=== PATIENT | male | born 1945 | race Caucasian/White ===

== ENCOUNTER 2023-03-16 13:10 | Outpatient (CLI) | payer MEDICARE, OTHER, SELFPAY ==
--- NOTE | ~2023-03-16 | PE_ITS ---
EXAMINATION: PET_PETPSMAST_PT DATE: 03/16/2023 15:49 INDICATION: Malignant neoplasm of the prostate TECHNIQUE: 9.522 mCi of pipflufolastat F-18 (18-F-DCFPyL) was administered i.v. Low dose computed to mography (CT) images were acquired from the base of the brain to the base of the brain to the proxima l thighs for attenuation correction and anatomic localization. Positron emission tomography (PET) yvonne ges were acquired in the same distribution beginning 103 minutes after injection. Images including fu sed PET/CT images were reconstructed in axial, coronal, and sagittal planes. Automated exposure contr ol technique was employed. The dose-length product was 564.87mGy-cm. COMPARISON: None FINDINGS: Head/neck: Typical pattern of symmetric physiologic increased activity in the lacrimal, parotid and submandibula r glands as well as along the mucosa of the nasal and oral cavities, the billy-, naso- and hypopharynx, the glottis and esophagus. No pathologically enlarged cervical lymphadenopathy or suspicious foci of increased uptake in the visualized head or neck. Chest: Mild dependent and bibasilar atelectasis. A few small bilateral calcified pulmonary nodules consisten t with old granulomatous disease. No pneumonia, pulmonary edema or pleural effusion. Atherosclerotic coronary artery calcification. No pericardial effusion. Thoracic aorta is normal in caliber. Small sl iding-type hiatal hernia. No pathologically enlarged or PSMA avid thoracic lymphadenopathy. Abdomen/pelvis/proximal thighs: Physiologic renal accumulation and excretion of activity in the kidneys, bladder and along portions o f ureters. Normal degree and slightly heterogenous pattern of increased uptake throughout the liver a nd spleen without radiologic correlate or dominant PSMA avid lesion. The gallbladder, pancreas and bi lateral adrenal glands are normal. Moderate uptake scattered throughout the bowels with typical duode nal and proximal jejunal predominance and without radiologic correlate, also likely physiologic. Pros tatomegaly measuring 5.5 x 4.4 cm. There is a large region of intense PSV may uptake with maximal SUV of 29.9 occupying a large portion of the left side of the prostate without discernible radiologic co rrelate most likely representing the reported primary prostate cancer. The region of increased activi ty measures 3.5 x 2.4 cm on the PET imaging. There is small bulge to the region of activity extending posterior superiorly towards the region of the left seminal vesicle potentially representing her inv asion. Also on the PET imaging but without evident correlate on CT is a 1 cm region of increased PSMA activity with maximal SUV of 12 located in the right side of the prostate. No other abnormal foci o f increased uptake or pathologically enlarged lymphadenopathy in the abdomen, pelvis or proximal thig hs. Musculoskeletal: There are bridging osteophytes at multiple levels in the spine, consistent with diffuse idiopathic sk eletal hyperostosis (DISH). There are no suspicious lytic, blastic or PSMA avid bone lesions to sugge st osseous metastatic disease. IMPRESSION: 1. 2 regions of prominent increased activity the largest at the left side of the enlarged prostate an d a smaller lesion in the right side consistent with provided history of prostate cancer. There is a posterior bulge of the increased uptake extending towards the left seminal vesicle and could not excl ude local invasion. 2. No other lesions suspicious for metastatic disease in the head, neck, chest, abdomen or pelvis. Reviewed, dictated and finalized at location B. IMPRESSION: 1. 2 regions of prominent increased activity the largest at the left side of th e enlarged prostate and a smaller lesion in the right side consistent with prov ided history of prosta
== END 2023-03-16 13:11 | disposition home or self-care (01) ==
LOC: ANHIMG 13:18
PROVIDERS: PCP Physician Assistant; Visit Provider Urology
DX: C64.1 Malignant neoplasm of right kidney, except renal pelvis (principal)
CPT/HCPCS: 78815; A9595